=== PATIENT | male | born 1990 | race Caucasian/White ===

== ENCOUNTER 2017-11-25 07:51 | Outpatient (CLI) | payer OTHER ==
--- NOTE | 2017-11-25 09:33 | RAD ---
LEFT HAND THREE VIEWS: History: Patient hit hand in October. Pain in the region of the hamate. FINDINGS/IMPRESSION: There are no signs of fracture or dislocation. If a hook of hamate fracture is clinically suspected t josé luis it may be helpful to obtain a CT or specialized plain film views to evaluate the hook of hamate. POS: [facility]
== END 2017-11-25 07:52 | disposition home or self-care (01) ==
LOC: BICRAD 07:51
PROVIDERS: ATTEND Family Medicine
DX: M79.642 Pain in left hand (principal)